=== PATIENT | male | born 1950 | race Caucasian/White ===

== ENCOUNTER → 2024-08-29 | Outpatient (CLI) | payer MEDICARE, BC, SELFPAY ==
--- NOTE | 2024-08-29 11:30 | XR_ITS ---
Examination: Abdomen sonogram, complete Date and time of exam: August 29, 2024 1132 hours INDICATIONS: Nicotine dependence, chronic smoking history. Technique: Multiple real-time grayscale transabdominal sonographic images of the abdomen have been obtained. Findings: Normal gallbladder Normal common bile duct 0.3 cm Pancreatic head 2.2 cm Aorta not enlarged. Liver 16.4 cm irregular contour no focal liver lesions Normal hepatopedal portal venous flow Patent IVC Right kidney 11.6 cm cortex 1.1 cm Left kidney 12.9 cm cortex 2.2 cm No hydronephrosis Spleen 11.5 cm IMPRESSION: Normal gallbladder Mild hepatomegaly
== END | disposition home or self-care (01) ==
PROVIDERS: PCP Family Medicine; Referring Provider Registered Nurse; Visit Provider Registered Nurse
DX: Z13.6 Encounter for screening for cardiovascular disorders (principal); R16.0 Hepatomegaly, not elsewhere classified; Z87.891 Personal history of nicotine dependence
CPT/HCPCS: 76700

== ENCOUNTER → 2024-12-27 | Outpatient (CLI) | payer MEDICARE, BC, SELFPAY ==
--- NOTE | 2024-12-27 10:34 | XR_ITS ---
EXAMINATION: Sternum 2 views TECHNIQUE: Bulblike lateral sternum 2 views Date and time: December 27, 2024, 11:00 a.m. INDICATIONS: Patient fell 6 weeks ago with injury to the chest, sternal pain FINDINGS: Suspicious for nondisplaced fracture of the manubrium IMPRESSION: Recommend CT chest without contrast follow-up to exclude nondisplaced fracture manubrium
--- NOTE | 2024-12-27 10:34 | XR_ITS ---
EXAMINATION: PA lateral chest 2 views TECHNIQUE: Upright PA lateral chest 2 views Date and time: December 27, 2024, 10:42 a.m. INDICATIONS: Patient fell 6 weeks ago with injury to the chest, chest pain FINDINGS: Normal heart size Lungs are clear. No pneumothorax Mild deformity of the manubrium IMPRESSION: Consider CT chest without contrast follow-up to exclude nondisplaced fracture manubrium
--- NOTE | 2024-12-27 10:34 | XR_ITS ---
Examination: Ribs, bilateral, with PA chest, 4 views Technique: Chest PA, RIBS AP, RPO, LPO, 4 views Exam date and time: December 27, 2024, 1042 hours INDICATIONS: Patient fell 6 weeks ago with injury to the bilateral chest, bilateral rib pain Findings: Normal heart size No pneumothorax No acute rib fractures IMPRESSION: No pneumothorax pulmonary contusion or hemothorax No acute rib fractures
== END | disposition home or self-care (01) ==
LOC: CDIM 10:29
PROVIDERS: PCP Registered Nurse; Referring Provider Registered Nurse; Visit Provider Registered Nurse
DX: S29.8XXA Other specified injuries of thorax, initial encounter (principal); W19.XXXA Unspecified fall, initial encounter
CPT/HCPCS: 71046; 71111; 71120